=== PATIENT | male | born 1970 | race African-American/Black ===

== ENCOUNTER 2023-02-25 11:56 | Emergency (ER) | payer MEDICAID ==
[~2023-02-25] VITALS: Ht 172.7 cm; Wt 91.0 kg
[2023-02-25] MEDS ORDERED: ACETAMINOPHEN WITH CODEINE 300/30MG TABLET PO ONE (18:45)
[2023-02-25] MEDS ORDERED: LISINOPRIL 10MG TABLET PO ONE (18:45)
[2023-02-25] MEDS ORDERED: T3 PO ×3 (18:49→19:54)
[2023-02-25] MEDS ORDERED: LISI10TA26 PO ×3 (18:49→19:54)
[2023-02-25 19:00] VITALS: BP 185/119
== END 2023-02-25 19:01 | disposition home or self-care (01) ==
LOC: ER 12:04
DX: I10 Essential (primary) hypertension (principal); G44.209 Tension-type headache, unspecified, not intractable; Z76.0 Encounter for issue of repeat prescription; E11.9 Type 2 diabetes mellitus without complications; Z88.0 Allergy status to penicillin
CPT/HCPCS: 73030; 82962; 99284